=== PATIENT | female | born 1995 | race Hispanic/Latino ===

== ENCOUNTER 2025-06-06 20:26 | Emergency (ER) | payer BC ==
[~2025-06-06] VITALS: Ht 157.5 cm; Wt 67.6 kg
--- NOTE | 2025-06-06 20:59 | ERN ---
ED Note History of Present Illness Stated Complaint: C/O ABD PAIN W/ N X V ONSET 4 DAYS. Chief Complaint: Abdominal Pain Time Seen by MD: 20:49 Dictation: This is a 29-year-old female who presented to the emergency room with complaints of left lower abdominal pain and also nausea vomitings. All this has been going on for a week to 10 days. Apparently she was seen at another ER and a CT scan was done extensive workup and she was told she had some blood in the pelvis but no other abnormalities were seen. Patient stated that she still continues to have the left lower quadrant pain and it is worse and hence she came in for a 2nd opinion. Her last menstrual period was 3 weeks ago. She denied any diarrhea constipation. She had her last bowel movement today. She was accompanied by her mother Temperature 98.6 pulse 106 respirations 20 blood pressure 126/92 with a pulse oximetry of 97% on room air Allergies: Coded Allergies: piperacillin (Unverified Allergy, Unknown, 06/06/25) tazobactam (Unverified Allergy, Unknown, 06/06/25) Past Medical History Past Medical History: Anxiety, Bipolar Surgical History: Unknown Family History: Negative LMP: May 15, 2025 RN Note Reviewed/Agreed w/PFSH: Yes Review of System Dictation Constitutional: Negative for fever,chills, and weight loss Eyes: Negative for injury, pain,redness, and discharge ENT: Negative for injury,pain or swelling Cardiovascular: Negative for chest pain, palpitations, and edema Respiratory: Negative for shortness of breath, cough, and wheezing, Abdomen/GI: Positive for abdominal pain, nausea, vomiting, diarrhea, and constipation Back: Negative for injury and pain : Negative for injury, bleeding and discharge MS/Extremity: Negative for injury and deformity Skin: Negative for rash, and discoloration Neuro: Negative for headache, weakness, numbness, tingling, and seizure Psych: Negative for suicide ideation, homicidal ideation, and hallucinations Initial Vital Sign VS Vital Signs Date Time Temp Pulse Resp B/P (MAP) Pulse Ox O2 Delivery O2 Flow Rate FiO2 06/06/25 20:29 98.6 106 20 126/92 97 Room Air 06/06/25 21:30 0 21 Physical Exam Dictation General: awake, alert, NAD Head/Face: Normocephalic, atraumatic Eyes: PERRL, EOMI, vision at baseline ENT: oral cavity clear, TMs clear, no signs of infection Neck: Trachea midline, supple, no nuchal rigidity Cardiovascular: RRR, normal S1/S2, No MRGs, no JVD Respiratory: CTAB, no respiratory distress, No rales or wheezes Abdomen: Soft, non-tender, non-distended, normal bowel sounds, no guarding or rebound. Skin: Warm, dry, normal turgor, no rash MS/Extremity: Pulses equal, no cyanosis, neurovascular intact, FROM Neuro: COAx4, GCS 15, strength 5/5, CN 2-12 intact, normal cerebellar exam, normal gait, Psych: Normal behavior, mood, and affect normal Extremities-trace edema without any palpable cords, Homans sign is negative Results (Laboratory/Radiology) Laboratory/Radiology Laboratory Tests Test 06/06/25 20:59 06/06/25 23:20 White Blood Count 9.0 K/uL (4.8-10.8) Red Blood Count 3.84 MIL/uL (4.00-5.50) L Hemoglobin 11.4 g/dL (12.0-16.0) L Hematocrit 35.2 % (36-48) L Mean Corpuscular Volume 91.7 fL (79-99) Mean Corpuscular Hemoglobin 29.7 pg (27.0-33.0) Mean Corpuscular Hemoglobin Concent 32.4 g/dL (32.0-36.0) Red Cell Distribution Width 13.5 % (11.0-15.5) Platelet Count 249 K/uL (130-400) Mean Platelet Volume 10.3 fL (7.5-10.5) Immature Granulocyte % (Auto) 0.2 % (0-1) Neutrophils (%) (Auto) 68.9 % (40.0-77.0) Lymphocytes (%) (Auto) 20.3 % (21.0-51.0) L Monocytes (%) (Auto) 8.3 % (3.0-13.0) Eosinophils (%) (Auto) 1.9 % (0.0-8.0) Basophils (%) (Auto) 0.4 % (0.0-5.0) Neutrophils # (Auto) 6.2 K/uL (1.8-7.7) Lymphocytes # (Auto) 1.8 K/uL (1.0-4.8) Monocytes # (Auto) 0.7 K/uL (0.1-1.0) Eosinophils # (Auto) 0.17 K/uL (0.00-0.70) Basophils # (Auto) 0.04 K/uL (0.00-0.20) Absolute Immature Granulocyte (auto 0.02 K/uL (0-1) Nucleated Red Blood Cells 0.0 % (0.0-0.19) Sodium Level 135 mmol/L (136-145) L Potassium Level 3.8 mmol/L (3.5-5.1) Chloride Level 102 mmol/L (101-111) Carbon Dioxide Level 23 mmol/L (21-32) Blood Urea Nitrogen 13 mg/dL (7-18) Creatinine 0.6 mg/dL (0.5-1.0) Glomerular Filtration Rate Calc 125 mL/min (>90) Random Glucose 87 mg/dL (70-105) Total Calcium 8.8 mg/dL (8.5-10.1) Lipase 25 U/L (16-77) Urine Color YELLOW (YELLOW) Urine Appearance CLEAR (CLEAR) Urine pH 6.0 (5.0-8.0) Urine Specific [place] 1.031 (1.001-1.031) Urine Protein 20 mg/dL (NEGATIVE) H Urine Glucose (UA) NEGATIVE mg/dL (NEGATIVE) Urine Ketones 150 mg/dL (NEGATIVE) H Urine Occult Blood MODERATE (NEGATIVE) H Urine Nitrate NEGATIVE (NEGATIVE) Urine Bilirubin NEGATIVE mg/dL (NEGATIVE) Urine Urobilinogen 0.2 mg/dL (0.2-1.0) Urine Leukocyte Esterase NEGATIVE Dano/uL Urine RBC 11-25 /HPF (0-1) H Urine WBC 2-5 /HPF (0-1) H Urine Squamous Epithelial Cells RARE /HPF (0-2) Urine Bacteria FEW /HPF (None Seen) Urine Opiates Screen NEGATIVE (NEGATIVE) Urine Barbiturates Screen NEGATIVE (NEGATIVE) Urine Phencyclidine Screen NEGATIVE (NEGATIVE) Urine Amphetamines Screen NEGATIVE (NEGATIVE) Urine Benzodiazepines Screen NEGATIVE (NEGATIVE) Urine Cocaine Screen NEGATIVE (NEGATIVE) Urine Marijuana (THC) Screen NEGATIVE (NEGATIVE) Labs Reviewed?: Yes ED Course ED Course Orders Procedure Category Date Status Time Cbc With Differential LAB 06/06/25 Complete 20:51 Urinalysis Profile LAB 06/06/25 Complete 20:51 Ketorolac PHA 06/06/25 Complete Tromethamine 30mg/Ml 21:00 Ondansetron 4mg Inj PHA 06/06/25 Complete (Zofran 4mg Inj) 21:00 Lipase LAB 06/06/25 Complete 20:51 Basic Metabolic Panel LAB 06/06/25 Complete 20:51 Drug Screen Urine LAB 06/06/25 Complete 20:51 Us Pelvic Non-Ob Comp US 06/06/25 Resulted 22:32 Morphine 4mg Syg PHA 06/07/25 Complete (Morphine 4mg Syg) 00:30 Current Medications Medications (Trade) Dose Ordered Sig/[place] Route PRN Reason Start Time Stop Time Status Last Admin Dose Admin Ketorolac Tromethamine (toRADol) 30 mg ONCE ONCE IVP 06/06/25 21:00 06/06/25 21:01 DC 06/06/25 22:28 Morphine Sulfate (morPHINE 4MG SYG) 2 mg ONCE ONCE IVP 06/07/25 00:30 06/07/25 00:31 DC 06/07/25 00:18 Ondansetron HCl (zoFRAN 4MG INJ) 4 mg ONCE ONCE IVP 06/06/25 21:00 06/06/25 21:01 DC 06/06/25 22:28 Vital Signs Date Time Temp Pulse Resp B/P (MAP) Pulse Ox O2 Delivery O2 Flow Rate FiO2 06/07/25 00:39 98.2 88 18 114/65 98 Room Air* 0 06/06/25 23:46 98.2 94 20 109/67 99 Room Air* 0 06/06/25 21:30 98.2 94 20 142/79 99 Room Air* 0 21 06/06/25 20:29 98.6 106 20 126/92 97 Room Air We will perform diagnostic labs, advanced imaging and administer medications according to the patient's complaint. Once the results are available, will review and personally interpreted the labs to rule out any acute life- threatening emergency the trach require immediate intervention and treatment. I will then re-evaluate the patient after treatment and diagnostic exams have return to determine whether the patient requires any further testing, can safely be discharged home or need further admission to hospital for additional treatment and evaluation. Medical Decision Making MDM Differential diagnosis: Gastritis, gastroenteritis, cholecystitis, pancreatitis, gastroesophageal reflux disease This is a 29-year-old female who presented to the emergency room with complaints of left lower abdominal pain and also nausea vomitings. All this has been going on for a week to 10 days. Apparently she was seen at another ER and a CT scan was done extensive workup and she was told she had some blood in the pelvis but no other abnormalities were seen. Patient stated that she still continues to have the left lower quadrant pain and it is worse and hence she came in for a 2nd opinion. Her last menstrual period was 3 weeks ago. She denied any diarrhea constipation. She had her last bowel movement today. She was accompanied by her mother Temperature 98.6 pulse 106 respirations 20 blood pressure 126/92 with a pulse oximetry of 97% on room air 10:30 p.m. labs reviewed CBC is with a normal limits. BNP 7 is with a normal limits. Lipase is 27. Empiric symptomatic treatment was instituted and patient was given Toradol and Zofran. 11:00 p.m. patient indicated that she continues to have severe pain and as she had CT scan a week ago, I have requested pelvic ultrasound. 11:30 p.m. urinalysis is unremarkable for a UTI but shows small amount of occult blood. UDS is negative. Pelvic ultrasound is finally resulted and there was no evidence of any obvious ovarian cyst rupture or torsion. I updated the patient and her mother on all the test results and answered all their questions. She will be discharged to home and returned to the ER should the pain recur or get worse Rationale: Tests considered and ordered secondary to shared decision making include: Ultrasound of the pelvis and labs Previous outside records reviewed: Old ER visits. Risk of complication and/or morbidity or mortality of patient management: None Medications-Per medication reconciliation Need for hospitalization: Patient does not meet criteria for hospitalization. Need for emergency major/minor surgery: No There are no social concerns with this patient. Prescription drug management Prescriptions will include symptomatic care Patient's prior external medical records from other ER visits were reviewed by me as indicated. Prior testing and results from previous visits were reviewed. Prior tests were taken into account with medical decision making and resource utilization, independent historian/historians were used to obtain complete medical history. I independently interpreted the test that were performed, results were reviewed by me and considered findings on radiology if ordered. Medical management and examination interpretation discussions were had by me with other qualified healthcare professionals as indicated for the patient's care. Problem List Problem List: (1) Left lower quadrant abdominal pain (2) Nausea & vomiting (3) Constipation DX & DISP Disposition: Discharge Departure Impression: Primary Impression: Left lower quadrant abdominal pain Additional Impressions: Nausea & vomiting, Constipation Condition: Stable Additional Instructions: Patient and the caregiver have been informed of all the diagnostic tests and the imaging conducted during the today's visit to the emergency room and has verbalized understanding of the results I have personally reviewed and interpreted all diagnostic exams performed here in the ER today as well as the vital signs documented by the nursing staff. The patient is now being discharged to home and should follow up with the primary care physician or the specialist as directed by the ER staff. Follow-up with primary care provider in 1 to 2 days. Take medications as directed here in the emergency room. Okay to continue home medications unless otherwise discussed during your visit in the emergency room today. Return to your nearest emergency room if symptoms worsen or if there is no improvement. Call 911 if you need immediate assistance. Take Tylenol or Motrin [id number] as needed and if no contraindications are present. Increase oral hydration. A wound culture or urine culture was ordered here in the [facility] please follow-up with primary care provider and advise them to get repeat ports from our facility. If you had any Greg wrap/splints that were applied here, please do not remove them until you see your primary care or specialty. Increase fluid intake, fiber and a laxative PRN DEJAH IRVIN MD Jun 06, 2025 20:59
[2025-06-06 21:06] LABS: IMMATURE GRANULOCYTE ABSOLUTE 0.02 K/uL (0-1); NUCLEATED RED BLOOD CELLS 0.0 % (0.0-0.19); PLATELET COUNT (AUTO) 249 K/uL (130-400); RED BLOOD CELL COUNT(AUTO) 3.84 MIL/uL (4.00-5.50); RED CELL DISTRIBUTION WIDTH 13.5 % (11.0-15.5); WHITE BLOOD COUNT (AUTO) 9.0 K/uL (4.8-10.8)
[2025-06-06 21:12] LABS: CREATININE 0.6 mg/dL (0.5-1.0); GLOMERULAR FILTR. RATE CALC 125.0 mL/min (>90); GLUCOSE,RANDOM 87.0 mg/dL (70-105); SODIUM SERUM 135.0 mmol/L (136-145); UREA NITROGEN, BLOOD 13.0 mg/dL (7-18)
[2025-06-06 23:30] LABS: APPEARANCE,URINE CLEAR (CLEAR); GLUCOSE, URINE (UA) NEGATIVE (NEGATIVE); LEUKOCYTE ESTERASE ,URINE NEGATIVE Leu/uL (NEGATIVE); NITRATE,URINE NEGATIVE (NEGATIVE); OCCULT BLOOD,URINE MODERATE (NEGATIVE)
--- NOTE | 2025-06-06 23:33 | HMCIMG ---
EXAM: US Pelvis, Complete Transvaginal and Transabdominal COMPARISON: None provided. CLINICAL HISTORY: ? ovarian cyst rupture? torsion ? lower left sided abdominal pain TECHNIQUE: Transvaginal and transabdominal pelvic ultrasound (complete) with image documentation. FINDINGS: ENDOMETRIUM: Normal thickness. Endometrium is 11 mm UTERUS/CERVIX: The uterus appears within normal limits. No uterine fibroid or other mass evident. RIGHT OVARY: Nonvisualized LEFT OVARY: Normal Doppler flow. No abnormal mass. FREE FLUID: No free fluid. IMPRESSION: Unremarkable pelvic ultrasound. /Ben
[2025-06-06 23:38] LABS: AMPHET/METH SCREEN,URINE NEGATIVE (NEGATIVE); BARBITURATE SCREEN, URINE NEGATIVE (NEGATIVE); CANNABINOID SCREEN,URINE NEGATIVE (NEGATIVE); COCAINE SCREEN,URINE NEGATIVE (NEGATIVE)
[2025-06-06 23:43] LABS: ADD UA MICROSCOPIC YES
[2025-06-06 23:45] LABS: SQUAMOUS EPITHELIAL CELL,UR RARE /HPF (0-2)
[2025-06-07 00:39] VITALS: BP 114/65; PULSE 88; RESP 18; TEMP 98.2; O2SAT 98
== END 2025-06-07 00:50 | disposition home or self-care (01) ==
LOC: EDH 20:26
DX: K59.00 Constipation, unspecified (principal); R11.2 Nausea with vomiting, unspecified; R10.32 Left lower quadrant pain; F31.9 Bipolar disorder, unspecified; F41.9 Anxiety disorder, unspecified; Z88.1 Allergy status to other antibiotic agents; Z88.0 Allergy status to penicillin
CPT/HCPCS: 99284; 96374; 76856; 96375 ×2; 80048; 80305; 83690; 85025; 36415; 81001; J1885; J2405; J2270